=== PATIENT | female | born 1975 | race Caucasian/White ===

== ENCOUNTER 2022-02-17 16:25 | Emergency (ER) | payer OTHER ==
[2022-02-17] MEDS ORDERED: HYDROCODON-ACE1 EAC4 PO (19:21)
== END 2022-02-17 19:40 | disposition home or self-care (01) ==
LOC: ER1 16:25
DX: S96.911A Strain of unspecified muscle and tendon at ankle and foot level, right foot, initial encounter (principal); M16.12 Unilateral primary osteoarthritis, left hip; F17.210 Nicotine dependence, cigarettes, uncomplicated; W19.XXXA Unspecified fall, initial encounter; Y92.009 Unspecified place in unspecified non-institutional (private) residence as the place of occurrence of the external cause
CPT/HCPCS: 72040; 72131; 72192; 73552; 73620; 99284